=== PATIENT | female | born 1965 | race Caucasian/White ===

== ENCOUNTER 2020-05-11 17:40 | Emergency (ER) | payer OTHER ==
[2020-05-11] MEDS ORDERED: AZELASTINE137 MCG/A1 NS (19:32)
[2020-05-11] MEDS ORDERED: ARNUITY EL100 MCG/Ac IH (19:32)
[2020-05-11] MEDS ORDERED: HUMIRA PEN40 MG/0.4 SQ (19:34)
[2020-05-11] MEDS ORDERED: NORCO 325 MG-51 TA1 PO (21:01)
[2020-05-11] MEDS ORDERED: CLINDAMYCIN 300MG PO (21:01)
[2020-05-11 21:24] VITALS: BP 118/71
== END 2020-05-11 21:24 | disposition home or self-care (01) ==
LOC: ED 17:40
DX: S81.012A Laceration without foreign body, left knee, initial encounter (principal); J45.909 Unspecified asthma, uncomplicated; Z90.710 Acquired absence of both cervix and uterus; Z23 Encounter for immunization; Z88.0 Allergy status to penicillin; Z88.5 Allergy status to narcotic agent; W01.198A Fall on same level from slipping, tripping and stumbling with subsequent striking against other object, initial encounter; Y92.009 Unspecified place in unspecified non-institutional (private) residence as the place of occurrence of the external cause